=== PATIENT | female | born 1975 | race Caucasian/White ===

== ENCOUNTER 2017-08-26 09:19 | Emergency (ER) | payer OTHER ==
[~2017-08-26] VITALS: Ht 157.5 cm; Wt 54.4 kg
[2017-08-26 09:24] VITALS: BP 139/74
[2017-08-26] MEDS ORDERED: TDAP [DIPH/PERTUSSIS/TET] 0.5 ML VIAL IM ONE ×2 (10:25→10:30)
== END 2017-08-26 10:40 | disposition home or self-care (01) ==
LOC: ER 09:26
DX: Z77.29 Contact with and (suspected) exposure to other hazardous substances (principal); W46.0XXA Contact with hypodermic needle, initial encounter; Y93.89 Activity, other specified; Y92.89 Other specified places as the place of occurrence of the external cause; Y99.0 Civilian activity done for income or pay
CPT/HCPCS: 36415; 86706; 86803; 90471; 90715; 99284; A4606; Z7610